=== PATIENT | female | born 1965 | race Two or more races ===

== ENCOUNTER 2018-03-06 06:15 | Day surgery (SDC) | payer BC ==
[2018-03-06] MEDS ORDERED: LIDOCAINE 4% SOLUTION 50 ML BTL (07:42)
[2018-03-06] MEDS ORDERED: MIDAZOLAM 1 MG/ML 2 ML INJ ×2 (08:35)
[2018-03-06] MEDS ORDERED: FENTAnyl 50 MCG/ML VIAL (08:35)
== END 2018-03-06 14:41 | disposition home or self-care (01) ==
LOC: GIL 06:15
DX: Z12.11 Encounter for screening for malignant neoplasm of colon (principal); K29.70 Gastritis, unspecified, without bleeding; K21.0 Gastro-esophageal reflux disease with esophagitis; K64.4 Residual hemorrhoidal skin tags; K64.8 Other hemorrhoids; I10 Essential (primary) hypertension; E11.9 Type 2 diabetes mellitus without complications
CPT/HCPCS: 43239; 82962; 88305; 88312